=== PATIENT | female | born 1950 | race Caucasian/White ===

== ENCOUNTER 2017-06-16 13:46 | Outpatient (CLI) | payer MEDICARE, BC | END 2017-06-16 13:47 | disposition home or self-care (01) | LOC: BICMAMMO 13:46 | PROVIDERS: ATTEND Internal Medicine | DX: Z12.31 Encounter for screening mammogram for malignant neoplasm of breast (principal); Z78.0 Asymptomatic menopausal state; M85.89 Other specified disorders of bone density and structure, multiple sites; Z80.3 Family history of malignant neoplasm of breast | CPT/HCPCS: 77063; 77067; 77080 ==

== ENCOUNTER 2019-01-04 08:58 | Outpatient (CLI) | payer MEDICARE, BC ==
--- NOTE | 2019-01-04 09:51 | ULT ---
US Renal Bilateral STANDARD: 01/04/2019 12:00 AM CLINICAL HISTORY: Chronic kidney disease. STUDY: Renal ultrasound COMPARISON: None. FINDINGS: Right kidney: Echogenicity: Normal. Masses/cysts: 1.5 cm cyst Hydronephrosis: None. Calcifications: None. Length: 9.1 cm Left kidney: Echogenicity: Normal. Masses/cysts: 1.1 cm cyst Hydronephrosis: None. Calcifications: None. Length: 8.8 cm Limited visualization of the urinary bladder is unremarkable. Both ureteral jets were visualized. IMPRESSION: Bilateral renal cysts
== END 2019-01-04 08:59 | disposition home or self-care (01) ==
LOC: BICULT 08:58
PROVIDERS: ATTEND Internal Medicine
DX: E11.22 Type 2 diabetes mellitus with diabetic chronic kidney disease (principal); N18.4 Chronic kidney disease, stage 4 (severe); N28.1 Cyst of kidney, acquired
CPT/HCPCS: 76770

== ENCOUNTER 2020-04-14 15:25 | Outpatient (CLI) | payer MEDICARE, BC ==
--- NOTE | 2020-04-14 16:25 | CT ---
CT neck soft tissues noncontrast: 04/14/2020 HISTORY: 69-year-old female with palpable mass anterior to the right ear. TECHNIQUE: External marker was placed at palpable lump. No IV contrast was given because of low GFR of 28. Scan from mid orbits to aortic arch. FINDINGS: Deep to the external marker, there is an approximately 1.5 x 1.5 x 1.8 cm round, slightly lobular deborah id soft tissue density mass in the anterior portion of the superficial lobe of the right parotid gland, anterior to the right external ear, and lateral to the right mandibular condyle. It contains n o calcifications. There is no sialolith. At approximately T1-2 level, there is an approximately 1 x 1 x 0.5 cm soft tissue density nodule abut ting the right side of the trachea. Anterior and inferior to that, there are several smaller such densities abutting the right side of th e intrathoracic trachea Otherwise no other evidence of cervical lymphadenopathy. Unremarkable trachea. Within the limitations of a noncontrast scan, no obvious pathology identified involving submandibular , left parotid, parapharyngeal, pharyngeal mucosal, retropharyngeal, perivertebral, or cattle farmer, spaces. Groundglass densities throughout the visualized lung apices. 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 In general, it is not possible to reliably distinguish benign parotid tumors from low-grade malignant ones on any imaging modality. 2) a vertical array of small soft tissue density nodules abutting the right side of the trachea. Thes e are nonspecific. There are favored to represent several slightly enlarged lymph nodes. Parathyroid adenomas would be less likely, but correlation with serum PTH and serum calcium is recomm ended. 3) nonspecific groundglass changes in the visualized bilateral lung apices. Possibilities include pul monary interstitial edema versus viral pneumonia.
== END 2020-04-14 15:26 | disposition home or self-care (01) ==
LOC: BICCT 15:25
PROVIDERS: ATTEND Student in an Organized Health Care Education/Training Program
DX: R22.1 Localized swelling, mass and lump, neck (principal); R91.8 Other nonspecific abnormal finding of lung field; C07 Malignant neoplasm of parotid gland
CPT/HCPCS: 70490

== ENCOUNTER 2020-05-02 12:02 | Outpatient (CLI) | payer MEDICARE, BC ==
[2020-05-03 03:17] LABS: SARS-CoV-2 MS2 Positive; SARS-CoV-2 N Gene Negative; SARS-CoV-2 S Gene Negative; SARS-CoV-2 by NAA Not Detected (NotDetected); SARS-CoV-2 orf1ab Negative
== END 2020-05-02 12:03 | disposition home or self-care (01) ==
LOC: LABBT 12:02
PROVIDERS: ATTEND Student in an Organized Health Care Education/Training Program
DX: Z01.812 Encounter for preprocedural laboratory examination (principal); R22.1 Localized swelling, mass and lump, neck; Z20.828 Contact with and (suspected) exposure to other viral communicable diseases
CPT/HCPCS: 87635; U0003

== ENCOUNTER 2020-05-06 12:23 | Day surgery (SDC) | payer MEDICARE, BC ==
[2020-05-05 13:52] VITALS: BMI 24.0
[2020-05-06] MEDS ORDERED: Lidocaine 1% PF 5 ML VIAL ONE (12:47)
[2020-05-06] MEDS ORDERED: Sodium Bicarbonate 2.5 MEQ/5 ML VIAL ONE (12:47)
--- NOTE | 2020-05-06 13:17 | ULT ---
Ultrasound right parotid: 05/06/2020 HISTORY: Right lateral facial mass in 69-year-old female FINDINGS: There is a well-circumscribed 1.8 x 1.6 x 1.4 cm solid, slightly heterogeneously hypoechoic mass in t he superficial lobe of the right parotid gland. There is blood flow within this mass. In general, it is not possible to reliably distinguish benign from low-grade malignant parotid neopla sm on any imaging modality with high degree of confidence. 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
[2020-05-06 13:40] VITALS: BP 163/77; TEMP 98.2
--- NOTE | 2020-05-06 14:32 | ULT ---
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 Patient placed in left lateral decubitus position. Skin of right ch rampart prepared and draped in usual sterile fashion. 25-gauge needle used to apply buffered lidocaine superficially, then under ultrasound guidance, to the anterolateral edge of the solid right parotid m ass. Using a total of 4 separate 25-gauge needles mounted on 4 separate 5 mL syringes, aspiration with chronic needle advancements were made in the parotid tumor. All samples were given to Dr. Osmar tatum of pathology, who prepared preliminary touch preparation slides, which revealed epithelial cells. Patient tolerated procedure well. No complications. IMPRESSION: Technically successful fine-needle aspiration x4 of the solitary solid tumor in the superficial lobe of the right parotid gland.
== END 2020-05-06 14:00 | disposition home or self-care (01) ==
LOC: ULT 12:23
PROVIDERS: ATTEND Student in an Organized Health Care Education/Training Program
PROC: 0CBJ3ZX Excision of Minor Salivary Gland, Percutaneous Approach, Diagnostic (ICD-10-PCS; principal; 2020-05-06)
DX: D11.0 Benign neoplasm of parotid gland (principal); K11.1 Hypertrophy of salivary gland; E11.40 Type 2 diabetes mellitus with diabetic neuropathy, unspecified; I10 Essential (primary) hypertension; M79.0 Rheumatism, unspecified; M19.90 Unspecified osteoarthritis, unspecified site; Z86.73 Personal history of transient ischemic attack (TIA), and cerebral infarction without residual deficits; Z87.891 Personal history of nicotine dependence; Z79.84 Long term (current) use of oral hypoglycemic drugs; Z79.83 Long term (current) use of bisphosphonates; Z79.899 Other long term (current) drug therapy
CPT/HCPCS: 60100; 76536; 76942; 88172; 88173; 88177; 88305

== ENCOUNTER 2021-04-14 12:23 | Outpatient (CLI) | payer MEDICARE, BC | END 2021-04-14 12:24 | disposition home or self-care (01) | LOC: BICMAMMO 12:23 | PROVIDERS: ATTEND Internal Medicine | DX: Z12.31 Encounter for screening mammogram for malignant neoplasm of breast (principal); Z80.3 Family history of malignant neoplasm of breast | CPT/HCPCS: 77063; 77067 ==

== ENCOUNTER 2021-04-24 09:44 | Emergency (ER) | payer MEDICARE, BC ==
[2021-04-24 10:42] LABS: Bilirubin Negative (Negative); Blood, Urine Negative (Negative); Clarity Turbid (Clear); Glucose, Urine (Dipstick) Greater than 1000 mg/dL (Negative); Ketone, Urine Trace mg/dL (Negative); Leukocyte 250 Leu/uL (Negative); Nitrite Negative (Negative); Protein, Urine (Dipstick) 20 mg/dL (Neg-Trace); RBC/HPF 0-3 HPF (0-3); Specific Gravity, Urine 1.026 (1.002-1.036); Squamous Epithelial 0-3 HPF (0-3); Urobilinogen Normal mg/dL (Less than 2)
[2021-04-24 10:43] LABS: Bacteria/HPF 1+ HPF (None Seen)
[2021-04-24 10:58] LABS: #Basophils 0.1 thou/uL (0.0-0.2); #Eosinphils 0.4 thou/uL (0.0-0.7); #Lymphocytes 2.2 thou/uL (1.20-3.40); #Neutrophils 7.7 thou/uL (1.40-6.50); %Basophils 0.6 % (0.0-1.0); %Eosinophils 3.4 % (0.0-10.0); %Monocytes 8.7 % (0.0-10.0); %Neutrophils 68.3 % (42.0-75.0); Hemoglobin 13.8 g/dL (12.0-16.0); Mean Corpuscular HGB CONC 34.2 g/dL (32.0-36.0); Mean Corpuscular Hemoglobin 30.9 pg (27.0-31.0); Mean Corpuscular Volume 90.5 fL (78.0-98.0); Mean Platelet Volume 7.8 fL (7.4-10.4); Platelet Count 172 thou/uL (130-400); RBC Distribution Width 11.9 % (11.5-14.5); Red Blood Cell (RBC) Count 4.46 mill/uL (4.20-5.40); White Blood Cell (WBC) Count 11.3 thou/uL (4.8-10.8)
[2021-04-24 11:28] LABS: ALT (SGPT) 11 U/L (8-55); AST (SGOT) 22 U/L (5-34); Alkaline Phosphatase 81 U/L (40-110); Anion Gap 20 mmol/L (10-20); BUN (Urea Nitrogen) 31 mg/dL (9.8-20.1); Bilirubin, Total 0.5 mg/dL (0.2-1.2); Calc. Creatinine Clearance 0 mL/min (70-130); Calcium 9.9 mg/dL (7.8-10.44); Carbon Dioxide 17 mmol/L (23-31); Chloride 103 mmol/L (98-107); Globulin 3.7 g/dL (2.4-3.5); Glucose 155 mg/dL (80-115); Potassium 4.7 mmol/L (3.5-5.1); Protein, Total 7.7 g/dL (5.8-8.1); Sodium 135 mmol/L (136-145)
== END 2021-04-24 12:35 | disposition home or self-care (01) ==
LOC: ERS 09:44
DX: S09.90XA Unspecified injury of head, initial encounter (principal); N30.00 Acute cystitis without hematuria; E11.9 Type 2 diabetes mellitus without complications; I10 Essential (primary) hypertension; Z87.891 Personal history of nicotine dependence; Z86.73 Personal history of transient ischemic attack (TIA), and cerebral infarction without residual deficits; Z79.899 Other long term (current) drug therapy; Z79.84 Long term (current) use of oral hypoglycemic drugs; W18.30XA Fall on same level, unspecified, initial encounter
CPT/HCPCS: 36415; 51701; 70450; 72125; 80053; 81003; 81015; 84484; 85025; 93005

== ENCOUNTER 2021-05-29 20:02 | Inpatient (IN) | payer MEDICARE, BC ==
[2021-05-29] MEDS ORDERED: Adenosine 6 MG/2 ML VIAL ONE (20:14)
[2021-05-29] MEDS ORDERED: Magnesium 2 GM/50 ML BAG (IN WATER) ONE (20:15)
[2021-05-29] MEDS ORDERED: Ondansetron PF 4 MG/2 ML Vial ONE (20:17)
[2021-05-29] MEDS ORDERED: EPINEPHrine 1 MG/10 ML Abboject SYRINGE ONE (20:26)
[2021-05-29] MEDS ORDERED: cefTRIAXone\\ROCEPHIN 2 GM VIAL ONE (21:08)
[2021-05-29] MEDS ORDERED: Azithromycin 500 MG VIAL ONE (21:08)
[2021-05-29 21:28] LABS: #Lymphocytes 0.9 thou/uL (1.20-3.40); #Monocytes 1.4 thou/uL (0.11-0.59); #Neutrophils 11.5 thou/uL (1.40-6.50); %Eosinophils 0.1 % (0.0-10.0); %Lymphocytes 6.6 % (21.0-51.0); %Monocytes 10.2 % (0.0-10.0); Hemoglobin 11.7 g/dL (12.0-16.0); Mean Corpuscular HGB CONC 34.2 g/dL (32.0-36.0); Mean Corpuscular Volume 93.6 fL (78.0-98.0); Platelet Count 227 thou/uL (130-400); RBC Distribution Width 12.4 % (11.5-14.5); Red Blood Cell (RBC) Count 3.65 mill/uL (4.20-5.40); White Blood Cell (WBC) Count 13.9 thou/uL (4.8-10.8)
[2021-05-29 21:40] LABS: CKMB 1.1 ng/mL (0-6.6)
[2021-05-29 21:50] LABS: INR-International Normal Ratio 1.1; PTT 33.4 sec (22.9-36.1); Prothrombin Time 14.5 sec (12.0-14.7)
[2021-05-29 21:54] LABS: ALT (SGPT) 40 U/L (8-55); AST (SGOT) 69 U/L (5-34); Albumin 3.7 g/dL (3.4-4.8); Alkaline Phosphatase 122 U/L (40-110); Anion Gap 29 mmol/L (10-20); Bilirubin, Total 0.8 mg/dL (0.2-1.2); Calc. Creatinine Clearance 0 mL/min (70-130); Calcium 8.7 mg/dL (7.8-10.44); Carbon Dioxide 9 mmol/L (23-31); Chloride 104 mmol/L (98-107); Globulin 3.7 g/dL (2.4-3.5); Glucose 389 mg/dL (80-115); Lipase 12 U/L (8-78); Magnesium 1.9 mg/dL (1.6-2.6); Potassium 5.1 mmol/L (3.5-5.1); Protein, Total 7.4 g/dL (5.8-8.1); Sodium 137 mmol/L (136-145)
[2021-05-29] MEDS ORDERED: Enoxaparin Sodium 60 MG/0.6 ML SYRINGE ONE (22:49)
[2021-05-29] MEDS ORDERED: Ondansetron PF 4 MG/2 ML Vial IVP PRN (23:52)
[2021-05-29] MEDS ORDERED: Dextrose 5% in Water 1,000 ML IV PRN (23:57)
[2021-05-29] MEDS ORDERED: HumaLOG 300 UNITS/3 ML VIAL SC PRN (23:57)
[2021-05-29] MEDS ORDERED: Dextrose 50% Abboject 50 ML SYRINGE SLOW IVP PRN (23:57)
[2021-05-30 00:20] LABS: SARS-CoV-2 NAA Rapid Test Not Detected (NotDetected)
[2021-05-30 00:25] VITALS: BMI 23.3
[2021-05-30 00:37] LABS: Lactic Acid 1.2 mmol/L (0.5-2.2)
[2021-05-30 00:40] LABS: BUN (Urea Nitrogen) 20 mg/dL (9.8-20.1)
[2021-05-30] MEDS: Sodium Chloride 0.9% 1,000 ML IV SCH ×2 (00:54→15:00)
[2021-05-30] MEDS: Sodium Bicarb 50 MEQ/50 ML Abboject 8.4% SYRINGE IVP SCH (00:55)
[2021-05-30 01:09] LABS: Troponin I 1.481 ng/mL (< 0.028)
[2021-05-30 04:08] LABS: #Lymphocytes 1.8 thou/uL (1.20-3.40); #Monocytes 1.8 thou/uL (0.11-0.59); #Neutrophils 11.8 thou/uL (1.40-6.50); %Basophils 0.1 % (0.0-1.0); %Eosinophils 0.1 % (0.0-10.0); %Lymphocytes 11.7 % (21.0-51.0); %Monocytes 11.7 % (0.0-10.0); %Neutrophils 76.3 % (42.0-75.0); Hemoglobin 10.6 g/dL (12.0-16.0); Mean Corpuscular HGB CONC 33.8 g/dL (32.0-36.0); Mean Corpuscular Hemoglobin 31.2 pg (27.0-31.0); Mean Corpuscular Volume 92.1 fL (78.0-98.0); Platelet Count 222 thou/uL (130-400); RBC Distribution Width 12.2 % (11.5-14.5); Red Blood Cell (RBC) Count 3.41 mill/uL (4.20-5.40); White Blood Cell (WBC) Count 15.5 thou/uL (4.8-10.8)
[2021-05-30 04:32] LABS: ALT (SGPT) 116 U/L (8-55); AST (SGOT) 137 U/L (5-34); Albumin 3.1 g/dL (3.4-4.8); Alkaline Phosphatase 107 U/L (40-110); Anion Gap 13 mmol/L (10-20); BUN (Urea Nitrogen) 17 mg/dL (9.8-20.1); Bilirubin, Direct 0.2 mg/dL (0.1-0.3); Bilirubin, Total 0.3 mg/dL (0.2-1.2); Calc. Creatinine Clearance 43 mL/min (70-130); Calcium 8.5 mg/dL (7.8-10.44); Carbon Dioxide 24 mmol/L (23-31); Chloride 108 mmol/L (98-107); Glucose 227 mg/dL (80-115); Magnesium 2.3 mg/dL (1.6-2.6); Potassium 3.9 mmol/L (3.5-5.1); Protein, Total 6.3 g/dL (5.8-8.1); Sodium 141 mmol/L (136-145)
[2021-05-30 04:47] LABS: Troponin I 3.466 ng/mL (< 0.028)
[2021-05-30] MEDS: HumaLOG 300 UNITS/3 ML VIAL SC PRN (05:38)
[2021-05-30 06:09] LABS: Bacteria/HPF None Seen HPF (None Seen); Bilirubin Negative (Negative); Blood, Urine Negative (Negative); Clarity Clear (Clear); Glucose, Urine (Dipstick) Greater than 1000 mg/dL (Negative); Ketone, Urine 20 mg/dL (Negative); Leukocyte 25 Leu/uL (Negative); Nitrite Negative (Negative); Protein, Urine (Dipstick) 30 mg/dL (Neg-Trace); RBC/HPF 0-3 HPF (0-3); Specific Gravity, Urine 1.025 (1.002-1.036); Squamous Epithelial 0-3 HPF (0-3); Transitional Epithelial 0-3 HPF (None Seen); Urobilinogen Normal mg/dL (Less than 2); Yeast-Budding 3+ HPF (None Seen)
[2021-05-30 06:10] LABS: Urine Culture Reflex Yes Yes
[2021-05-30] MEDS: Acetaminophen 325 MG TAB PO PRN (08:39)
[2021-05-30] MEDS ORDERED: FLU VACC QS2021-22(6MOS UP)/PF 60 MCG/0.5 ML SYRINGE IM ONE (09:00)
[2021-05-30] MEDS ORDERED: Temazepam 15 MG CAP PO PRN (09:07)
[2021-05-30] MEDS: traMADol HCl 50 MG TAB PO SCH ×2 (10:16→20:49)
[2021-05-30] MEDS: diphenhydrAMINE 25 MG CAP PO SCH (10:16)
[2021-05-30 13:50] LABS: Legionella Urinary Ag Negative (Negative)
[2021-05-30 15:40] LABS: Strep pneumo Urine Ag POSITIVE (NEGATIVE)
[2021-05-30 17:48] LABS: Hemoglobin A1c 9.7 % (4.0-6.0)
[2021-05-30] MEDS: Alogliptin 6.25 MG TAB PO SCH (20:48)
[2021-05-30] MEDS: Atorvastatin Calcium 10 MG TAB PO SCH (20:49)
[2021-05-30] MEDS: cefTRIAXone\\ROCEPHIN 1 GM in Sodium Chloride 0.9% 100 ML IVPB SCH (20:50)
[2021-05-30] MEDS: Azithromycin 500 MG in Sodium Chloride 0.9% 250 ML 250 ML IVPB SCH (22:35)
[2021-05-31] MEDS: Sodium Bicarb 50 MEQ/50 ML Abboject 8.4% SYRINGE IVP SCH (00:16)
[2021-05-31] MEDS: Sodium Chloride 0.9% 1,000 ML IV SCH ×2 (03:53→16:53)
[2021-05-31 05:01] LABS: #Eosinphils 0.3 thou/uL (0.0-0.7); #Lymphocytes 1.9 thou/uL (1.20-3.40); #Neutrophils 8.6 thou/uL (1.40-6.50); %Basophils 0.4 % (0.0-1.0); %Eosinophils 2.6 % (0.0-10.0); %Lymphocytes 16.3 % (21.0-51.0); %Monocytes 8.3 % (0.0-10.0); %Neutrophils 72.4 % (42.0-75.0); Hemoglobin 10.9 g/dL (12.0-16.0); Mean Corpuscular HGB CONC 32.6 g/dL (32.0-36.0); Mean Corpuscular Hemoglobin 30.8 pg (27.0-31.0); Mean Corpuscular Volume 94.3 fL (78.0-98.0); Mean Platelet Volume 6.8 fL (7.4-10.4); Platelet Count 236 thou/uL (130-400); RBC Distribution Width 12.5 % (11.5-14.5); Red Blood Cell (RBC) Count 3.53 mill/uL (4.20-5.40); White Blood Cell (WBC) Count 11.9 thou/uL (4.8-10.8)
[2021-05-31 05:19] LABS: Anion Gap 11 mmol/L (10-20); BUN (Urea Nitrogen) 14 mg/dL (9.8-20.1); Calc. Creatinine Clearance 61 mL/min (70-130); Calcium 8.6 mg/dL (7.8-10.44); Carbon Dioxide 24 mmol/L (23-31); Chloride 106 mmol/L (98-107); Glucose 111 mg/dL (80-115); Magnesium 1.9 mg/dL (1.6-2.6); Potassium 3.7 mmol/L (3.5-5.1); Sodium 137 mmol/L (136-145)
[2021-05-31] MEDS: Enoxaparin Sodium 30 MG/0.3 ML SYRINGE SC SCH (08:27)
[2021-05-31] MEDS: traMADol HCl 50 MG TAB PO SCH ×2 (08:27→21:05)
[2021-05-31] MEDS: metFORMIN 500 MG TAB PO SCH (08:27)
[2021-05-31] MEDS: Empagliflozin 25 MG TAB PO SCH (08:30)
[2021-05-31] MEDS: diphenhydrAMINE 25 MG CAP PO SCH (08:32)
[2021-05-31] MEDS: HumaLOG 300 UNITS/3 ML VIAL SC PRN (16:53)
[2021-05-31] MEDS: Alogliptin 6.25 MG TAB PO SCH (21:04)
[2021-05-31] MEDS: Atorvastatin Calcium 10 MG TAB PO SCH (21:05)
[2021-05-31] MEDS: cefTRIAXone\\ROCEPHIN 1 GM in Sodium Chloride 0.9% 100 ML IVPB SCH (21:15)
[2021-05-31] MEDS: Azithromycin 500 MG in Sodium Chloride 0.9% 250 ML 250 ML IVPB SCH (22:11)
[2021-06-01 04:46] LABS: #Eosinphils 0.3 thou/uL (0.0-0.7); #Lymphocytes 2.5 thou/uL (1.20-3.40); #Monocytes 1.2 thou/uL (0.11-0.59); #Neutrophils 8.1 thou/uL (1.40-6.50); %Basophils 0.2 % (0.0-1.0); %Eosinophils 2.1 % (0.0-10.0); %Lymphocytes 20.7 % (21.0-51.0); %Monocytes 9.9 % (0.0-10.0); Hemoglobin 10.7 g/dL (12.0-16.0); Mean Corpuscular HGB CONC 33.1 g/dL (32.0-36.0); Mean Corpuscular Hemoglobin 31.3 pg (27.0-31.0); Mean Corpuscular Volume 94.4 fL (78.0-98.0); Mean Platelet Volume 6.6 fL (7.4-10.4); Platelet Count 265 thou/uL (130-400); RBC Distribution Width 12.3 % (11.5-14.5); Red Blood Cell (RBC) Count 3.41 mill/uL (4.20-5.40); White Blood Cell (WBC) Count 12.1 thou/uL (4.8-10.8)
[2021-06-01 05:07] LABS: Anion Gap 13 mmol/L (10-20); BUN (Urea Nitrogen) 11 mg/dL (9.8-20.1); Calc. Creatinine Clearance 61 mL/min (70-130); Calcium 9.5 mg/dL (7.8-10.44); Carbon Dioxide 23 mmol/L (23-31); Chloride 106 mmol/L (98-107); Glucose 79 mg/dL (80-115); Magnesium 1.6 mg/dL (1.6-2.6); Potassium 4.2 mmol/L (3.5-5.1); Sodium 138 mmol/L (136-145)
[2021-06-01] MEDS: Sodium Chloride 0.9% 1,000 ML IV SCH (05:35)
[2021-06-01] MEDS: metFORMIN 500 MG TAB PO SCH (09:01)
[2021-06-01] MEDS: traMADol HCl 50 MG TAB PO SCH ×2 (09:01→20:35)
[2021-06-01] MEDS: Enoxaparin Sodium 30 MG/0.3 ML SYRINGE SC SCH (09:02)
[2021-06-01] MEDS: diphenhydrAMINE 25 MG CAP PO SCH (09:02)
[2021-06-01] MEDS: Empagliflozin 25 MG TAB PO SCH (09:03)
[2021-06-01] MEDS ORDERED: hydrALAZINE 20 MG/ML VIAL SLOW IVP PRN (10:44)
[2021-06-01] MEDS: Acetaminophen 325 MG TAB PO PRN (13:39)
[2021-06-01] MEDS ORDERED: Amlodipine 5 MG TAB PO SCH (14:00)
[2021-06-01] MEDS ORDERED: Piperacillin/Tazobactam 3.375 GM in Sodium Chloride 0.9% 100 ML IVPB SCH ×2 (15:03→15:15)
[2021-06-01] MEDS ORDERED: Furosemide 20 MG/2 ML VIAL SLOW IVP SCH (15:15)
[2021-06-01] MEDS ORDERED: cloNIDine 0.1 MG TAB PO SCH (18:00)
[2021-06-01] MEDS: Atorvastatin Calcium 10 MG TAB PO SCH (20:35)
[2021-06-01] MEDS: Alogliptin 6.25 MG TAB PO SCH (20:35)
[2021-06-01] MEDS: cloNIDine 0.1 MG TAB PO SCH (20:36)
[2021-06-01] MEDS: Piperacillin/Tazobactam 3.375 GM in Sodium Chloride 0.9% 100 ML IVPB SCH (20:36)
[2021-06-01] MEDS: Azithromycin 500 MG in Sodium Chloride 0.9% 250 ML 250 ML IVPB SCH (22:54)
[2021-06-02] MEDS: Piperacillin/Tazobactam 3.375 GM in Sodium Chloride 0.9% 100 ML IVPB SCH (04:46)
[2021-06-02] MEDS: metFORMIN 500 MG TAB PO SCH (08:51)
[2021-06-02] MEDS: cloNIDine 0.1 MG TAB PO SCH (08:52)
[2021-06-02] MEDS: Empagliflozin 25 MG TAB PO SCH (08:52)
[2021-06-02] MEDS: diphenhydrAMINE 25 MG CAP PO SCH (08:53)
[2021-06-02] MEDS: Enoxaparin Sodium 30 MG/0.3 ML SYRINGE SC SCH (08:53)
[2021-06-02] MEDS ORDERED: Amlodipine 5 MG TAB PO SCH (09:00)
[2021-06-02 09:09] VITALS: TEMP 98.6
[2021-06-02] MEDS: traMADol HCl 50 MG TAB PO SCH (09:16)
[2021-06-02 10:15] LABS: #Eosinphils 0.1 thou/uL (0.0-0.7); #Lymphocytes 1.6 thou/uL (1.20-3.40); #Monocytes 1.2 thou/uL (0.11-0.59); #Neutrophils 9.8 thou/uL (1.40-6.50); %Basophils 0.2 % (0.0-1.0); %Eosinophils 1.1 % (0.0-10.0); %Lymphocytes 12.2 % (21.0-51.0); %Monocytes 9.3 % (0.0-10.0); %Neutrophils 77.2 % (42.0-75.0); Hemoglobin 11.5 g/dL (12.0-16.0); Mean Corpuscular HGB CONC 32.6 g/dL (32.0-36.0); Mean Corpuscular Hemoglobin 30.7 pg (27.0-31.0); Mean Corpuscular Volume 94.1 fL (78.0-98.0); Mean Platelet Volume 6.8 fL (7.4-10.4); Platelet Count 283 thou/uL (130-400); RBC Distribution Width 12.5 % (11.5-14.5); Red Blood Cell (RBC) Count 3.75 mill/uL (4.20-5.40); White Blood Cell (WBC) Count 12.7 thou/uL (4.8-10.8)
[2021-06-02] MEDS ORDERED: Aspirin 81 mg Enteric Coated Tablet PO SCH (11:30)
[2021-06-02 12:27] VITALS: BP 185/77
== END 2021-06-02 11:20 | disposition home or self-care (01) | DRG 871 ==
LOC: ERS 20:02 → IMCU/EMU 22:30 → 2NO 05-30 16:05
PROVIDERS: ADMIT Internal Medicine; ATTEND Internal Medicine
DX: A40.9 Streptococcal sepsis, unspecified (principal); Z20.822 Contact with and (suspected) exposure to COVID-19; J15.4 Pneumonia due to other streptococci; I21.A1 Myocardial infarction type 2; J96.01 Acute respiratory failure with hypoxia; R65.21 Severe sepsis with septic shock; I47.1 Supraventricular tachycardia; J90 Pleural effusion, not elsewhere classified; E87.2 Acidosis; N17.9 Acute kidney failure, unspecified; J44.0 Chronic obstructive pulmonary disease with (acute) lower respiratory infection; J44.1 Chronic obstructive pulmonary disease with (acute) exacerbation; I47.2 Ventricular tachycardia; I16.0 Hypertensive urgency; I08.1 Rheumatic disorders of both mitral and tricuspid valves; N18.30 Chronic kidney disease, stage 3 unspecified; E11.42 Type 2 diabetes mellitus with diabetic polyneuropathy; E11.22 Type 2 diabetes mellitus with diabetic chronic kidney disease; I12.9 Hypertensive chronic kidney disease with stage 1 through stage 4 chronic kidney disease, or unspecified chronic kidney disease; D63.1 Anemia in chronic kidney disease; E11.649 Type 2 diabetes mellitus with hypoglycemia without coma; Z86.73 Personal history of transient ischemic attack (TIA), and cerebral infarction without residual deficits; Z79.899 Other long term (current) drug therapy; Z79.84 Long term (current) use of oral hypoglycemic drugs; Z90.710 Acquired absence of both cervix and uterus; Z85.9 Personal history of malignant neoplasm, unspecified; Z87.891 Personal history of nicotine dependence
CPT/HCPCS: 36415; 36416; 71045; 80048; 80053; 80076; 81001; 82553; 83036; 83605; 83690; 83735; 83880; 84443; 84484; 85025; 85610; 85730; 86850; 86900; 86901; 87040; 87070; 87077; 87086; 87149; 87186; 87205; 87449; 87804; 87899; 92960; 93005; 93306; 96365; 96367; 96375; J0153; J0171; J0360; J0456; J0696; J1650; J1815; J1940; J2405; J2543; J3475; J3490; J7050; U0002

== ENCOUNTER 2021-07-02 12:13 | Outpatient (CLI) | payer MEDICARE, BC | END 2021-07-02 12:14 | disposition home or self-care (01) | LOC: BICRAD 12:13 | PROVIDERS: ATTEND Internal Medicine | DX: J18.9 Pneumonia, unspecified organism (principal) | CPT/HCPCS: 71046 ==

== ENCOUNTER 2022-04-21 15:44 | Inpatient (IN) | payer MEDICARE, BC ==
[2022-04-21] MEDS ORDERED: Ondansetron ODT 4 MG TAB PO PRN (17:01)
[2022-04-21] MEDS ORDERED: Acetaminophen 325 MG TAB PO PRN (17:01)
[2022-04-21] MEDS ORDERED: Calcium Carbonate 500 MG ChewTAB PO PRN (17:01)
[2022-04-21] MEDS ORDERED: Ondansetron PF 4 MG/2 ML Vial IVP PRN (17:01)
[2022-04-21] MEDS ORDERED: Insulin Regular 300 UNITS/3 ML VIAL SC PRN ×2 (17:04)
[2022-04-21] MEDS ORDERED: Dextrose 5% in Water 1,000 ML IV PRN (17:04)
[2022-04-21] MEDS ORDERED: Dextrose 50% Abboject 50 ML SYRINGE SLOW IVP PRN (17:04)
[2022-04-21] MEDS ORDERED: Nitroglycerin 0.4 MG TAB (25 Tab Bottle) SL PRN (17:06)
[2022-04-21] MEDS ORDERED: Diltiazem 125 MG in Sodium Chloride 0.9% 100 ML IVPB SCH (17:30)
[2022-04-21] MEDS ORDERED: Digoxin 0.25 MG TAB PO SCH ×2 (17:30→18:00)
[2022-04-21 17:39] VITALS: BMI 22.1
[2022-04-21] MEDS ORDERED: Ipratropium Bromide 2.5 ml Neb NEB PRN (17:43)
[2022-04-21] MEDS ORDERED: Communication Order-Pharmacy FS ONE (17:48)
[2022-04-21 17:55] LABS: Anion Gap 17 mmol/L (10-20); BUN (Urea Nitrogen) 32 mg/dL (9.8-20.1); Calc. Creatinine Clearance 31 mL/min (70-130); Calcium 9.1 mg/dL (7.8-10.44); Carbon Dioxide 17 mmol/L (23-31); Chloride 102 mmol/L (98-107); Estimated GFR 35; Glucose 244 mg/dL (80-115); Potassium 4.3 mmol/L (3.5-5.1); Sodium 132 mmol/L (136-145)
[2022-04-21] MEDS ORDERED: Diltiazem HCl 125 MG, Admixture Fee 1 EACH in Sodium Chloride 0.9% 100 ML IVPB SCH (18:00)
[2022-04-21] MEDS ORDERED: Electrolyte Replacement Protocol FS SCH (18:00)
[2022-04-21 18:09] LABS: Troponin I 0.938 ng/mL (< 0.028)
[2022-04-21] MEDS ORDERED: Famotidine 20 MG TAB PO SCH (21:00)
[2022-04-21] MEDS: Atorvastatin Calcium 10 MG TAB PO SCH (21:27)
[2022-04-21] MEDS: Alogliptin 6.25 MG TAB PO SCH (21:27)
[2022-04-21] MEDS: Enoxaparin Sodium 60 MG/0.6 ML SYRINGE SC SCH (21:27)
[2022-04-21] MEDS ORDERED: traMADol HCl 50 MG TAB PO SCH (21:45)
[2022-04-22 05:02] LABS: #Basophils 0.1 thou/uL (0.0-0.2); #Eosinphils 0.1 thou/uL (0.0-0.7); #Lymphocytes 2.7 thou/uL (1.20-3.40); #Monocytes 1.4 thou/uL (0.11-0.59); #Neutrophils 10.3 thou/uL (1.40-6.50); %Basophils 0.6 % (0.0-1.0); %Eosinophils 0.9 % (0.0-10.0); %Lymphocytes 18.6 % (21.0-51.0); %Monocytes 9.8 % (0.0-10.0); %Neutrophils 70.1 % (42.0-75.0); Hemoglobin 14.3 g/dL (12.0-16.0); Mean Corpuscular HGB CONC 33.5 g/dL (32.0-36.0); Mean Corpuscular Hemoglobin 30.6 pg (27.0-31.0); Mean Corpuscular Volume 91.3 fl (78.0-98.0); Mean Platelet Volume 7.6 fL (7.4-10.4); Platelet Count 215 10x3/uL (130-400); RBC Distribution Width 12.7 % (11.5-14.5); Red Blood Cell (RBC) Count 4.69 mill/uL (4.20-5.40); White Blood Cell (WBC) Count 14.7 10x3/uL (4.8-10.8)
[2022-04-22 05:43] LABS: ALT (SGPT) 11 U/L (8-55); AST (SGOT) 13 U/L (5-34); Albumin 3.9 g/dL (3.4-4.8); Alkaline Phosphatase 77 U/L (40-110); Anion Gap 19 mmol/L (10-20); BUN (Urea Nitrogen) 31 mg/dL (9.8-20.1); Bilirubin, Total 0.4 mg/dL (0.2-1.2); Calc. Creatinine Clearance 33 mL/min (70-130); Calcium 9.5 mg/dL (7.8-10.44); Carbon Dioxide 18 mmol/L (23-31); Chloride 105 mmol/L (98-107); Estimated GFR 38; Globulin 3.6 g/dL (2.4-3.5); Glucose 170 mg/dL (80-115); Potassium 4.5 mmol/L (3.5-5.1); Protein, Total 7.5 g/dL (5.8-8.1); Sodium 137 mmol/L (136-145)
[2022-04-22] MEDS: Furosemide 20 MG/2 ML VIAL SLOW IVP SCH ×2 (06:44→13:52)
[2022-04-22 07:34] LABS: Critical Call Chem Troponin I RESULT DECREASING
[2022-04-22 08:11] LABS: CKMB 2.1 ng/mL (0-6.6)
[2022-04-22 08:23] LABS: ALT (SGPT) 10 U/L (8-55); AST (SGOT) 13 U/L (5-34); Albumin 3.9 g/dL (3.4-4.8); Alkaline Phosphatase 78 U/L (40-110); Anion Gap 17 mmol/L (10-20); BUN (Urea Nitrogen) 30 mg/dL (9.8-20.1); Bilirubin, Total 0.6 mg/dL (0.2-1.2); Calc. Creatinine Clearance 34 mL/min (70-130); Calcium 9.5 mg/dL (7.8-10.44); Carbon Dioxide 22 mmol/L (23-31); Chloride 103 mmol/L (98-107); Estimated GFR 39; Globulin 3.4 g/dL (2.4-3.5); Glucose 158 mg/dL (80-115); Potassium 4.7 mmol/L (3.5-5.1); Protein, Total 7.3 g/dL (5.8-8.1); Sodium 137 mmol/L (136-145)
[2022-04-22] MEDS ORDERED: Aspirin 325 mg Enteric Coated Tablet PO SCH (09:00)
[2022-04-22] MEDS: Loratadine 10 MG TAB PO SCH (09:24)
[2022-04-22] MEDS: Enoxaparin Sodium 60 MG/0.6 ML SYRINGE SC SCH ×2 (09:24→20:11)
[2022-04-22] MEDS: Aspirin 81 mg Enteric Coated Tablet PO SCH (09:24)
[2022-04-22] MEDS: traMADol HCl 50 MG TAB PO SCH ×2 (09:25→20:11)
[2022-04-22] MEDS ORDERED: Digoxin 0.5 MG/2 ML AMP SLOW IVP SCH ×4 (09:30→16:00)
[2022-04-22] MEDS ORDERED: Sodium Chloride 0.9% 250 ML IV SCH (11:45)
[2022-04-22] MEDS ORDERED: Sodium Chloride 0.9% 250 ML 250 ML IVPB SCH ×2 (13:00→17:30)
[2022-04-22] MEDS: Sodium Chloride 0.9% 1,000 ML IV SCH (13:51)
[2022-04-22] MEDS ORDERED: Diltiazem HCl 125 MG, Admixture Fee 1 EACH in Sodium Chloride 0.9% 100 ML IVPB SCH (17:30)
[2022-04-22] MEDS ORDERED: Amiodarone 150 MG in Dextrose 5% in Water 100 ML IVPB SCH (18:00)
[2022-04-22] MEDS: Amiodarone 450 MG, Admixture Fee 1 EACH in Dextrose 5% in Water 250 ML IVPB SCH (20:03)
[2022-04-22] MEDS: Atorvastatin Calcium 10 MG TAB PO SCH (20:11)
[2022-04-22] MEDS: Alogliptin 6.25 MG TAB PO SCH (20:16)
[2022-04-23] MEDS: Sodium Chloride 0.9% 1,000 ML IV SCH ×3 (03:27→06:37)
[2022-04-23 05:30] LABS: #Basophils 0.1 thou/uL (0.0-0.2); #Eosinphils 0.2 thou/uL (0.0-0.7); #Lymphocytes 2.7 thou/uL (1.20-3.40); #Monocytes 1.2 thou/uL (0.11-0.59); #Neutrophils 6.1 thou/uL (1.40-6.50); %Lymphocytes 26.3 % (21.0-51.0); %Monocytes 11.3 % (0.0-10.0); %Neutrophils 59.4 % (42.0-75.0); Hemoglobin 14.2 g/dL (12.0-16.0); Mean Corpuscular HGB CONC 32.1 g/dL (32.0-36.0); Mean Corpuscular Hemoglobin 30.1 pg (27.0-31.0); Mean Corpuscular Volume 93.8 fl (78.0-98.0); Mean Platelet Volume 8.3 fL (7.4-10.4); Platelet Count 220 10x3/uL (130-400); RBC Distribution Width 12.7 % (11.5-14.5); Red Blood Cell (RBC) Count 4.73 mill/uL (4.20-5.40); White Blood Cell (WBC) Count 10.2 10x3/uL (4.8-10.8)
[2022-04-23] MEDS: Furosemide 20 MG/2 ML VIAL SLOW IVP SCH ×2 (05:30→13:22)
[2022-04-23] MEDS: Amiodarone 450 MG, Admixture Fee 1 EACH in Dextrose 5% in Water 250 ML IVPB SCH (05:33)
[2022-04-23 05:56] LABS: Anion Gap 17 mmol/L (10-20); BUN (Urea Nitrogen) 27 mg/dL (9.8-20.1); Calc. Creatinine Clearance 41 mL/min (70-130); Carbon Dioxide 16 mmol/L (23-31); Chloride 106 mmol/L (98-107); Estimated GFR 51; Glucose 158 mg/dL (80-115); Potassium 4.4 mmol/L (3.5-5.1); Sodium 135 mmol/L (136-145)
[2022-04-23] MEDS ORDERED: PROPOFOL 200 MG/20 ML VIAL ONE (08:32)
[2022-04-23] MEDS ORDERED: PHENYLEPHRINE-NS 100 MCG/ML 10 ML SYRINGE ONE (08:32)
[2022-04-23] MEDS ORDERED: Ondansetron HCl/PF 4 MG/2 ML Vial IVP PRN (10:15)
[2022-04-23] MEDS ORDERED: Promethazine HCl 25 MG/ML VIAL IM/IV PRN (10:15)
[2022-04-23] MEDS: Aspirin 81 mg Enteric Coated Tablet PO SCH (10:32)
[2022-04-23] MEDS: Enoxaparin Sodium 60 MG/0.6 ML SYRINGE SC SCH ×2 (10:33→21:06)
[2022-04-23] MEDS: Loratadine 10 MG TAB PO SCH (10:33)
[2022-04-23] MEDS: Insulin Glargine 30 UNITS/0.3 ML VIAL SC SCH (10:33)
[2022-04-23] MEDS: traMADol HCl 50 MG TAB PO SCH ×2 (10:34→21:07)
[2022-04-23] MEDS: Alogliptin 6.25 MG TAB PO SCH (21:06)
[2022-04-23] MEDS: Atorvastatin Calcium 10 MG TAB PO SCH (21:07)
[2022-04-23] MEDS: Amiodarone 200 MG TAB PO SCH (21:07)
[2022-04-24 05:08] LABS: Platelet Count 223 10x3/uL (130-400)
[2022-04-24] MEDS: Furosemide 20 MG/2 ML VIAL SLOW IVP SCH (05:49)
[2022-04-24 08:39] LABS: #Basophils 0.1 thou/uL (0.0-0.2); #Eosinphils 0.2 thou/uL (0.0-0.7); #Lymphocytes 2.2 thou/uL (1.20-3.40); #Monocytes 0.9 thou/uL (0.11-0.59); #Neutrophils 5.3 thou/uL (1.40-6.50); %Basophils 0.9 % (0.0-1.0); %Eosinophils 2.6 % (0.0-10.0); %Lymphocytes 25.7 % (21.0-51.0); %Monocytes 10.1 % (0.0-10.0); %Neutrophils 60.6 % (42.0-75.0); Hemoglobin 14.1 g/dL (12.0-16.0); Mean Corpuscular HGB CONC 33.7 g/dL (32.0-36.0); Mean Corpuscular Volume 91.9 fl (78.0-98.0); Platelet Count 219 10x3/uL (130-400); RBC Distribution Width 12.7 % (11.5-14.5); Red Blood Cell (RBC) Count 4.56 mill/uL (4.20-5.40); White Blood Cell (WBC) Count 8.7 10x3/uL (4.8-10.8)
[2022-04-24 08:44] LABS: Anion Gap 16 mmol/L (10-20); BUN (Urea Nitrogen) 30 mg/dL (9.8-20.1); Calc. Creatinine Clearance 34 mL/min (70-130); Calcium 9.2 mg/dL (7.8-10.44); Carbon Dioxide 20 mmol/L (23-31); Chloride 105 mmol/L (98-107); Estimated GFR 41; Glucose 107 mg/dL (80-115); Potassium 4.1 mmol/L (3.5-5.1); Sodium 137 mmol/L (136-145)
[2022-04-24] MEDS: Aspirin 81 mg Enteric Coated Tablet PO SCH (09:27)
[2022-04-24] MEDS: Amiodarone 200 MG TAB PO SCH (09:27)
[2022-04-24] MEDS: Enoxaparin Sodium 60 MG/0.6 ML SYRINGE SC SCH (09:27)
[2022-04-24] MEDS: traMADol HCl 50 MG TAB PO SCH (09:28)
[2022-04-24] MEDS: Loratadine 10 MG TAB PO SCH (09:28)
[2022-04-24] MEDS: Insulin Glargine 30 UNITS/0.3 ML VIAL SC SCH (09:28)
[2022-04-24 11:49] VITALS: TEMP 98.7
[2022-04-24 12:17] VITALS: BP 188/84
== END 2022-04-24 14:45 | disposition home or self-care (01) | DRG 308 ==
LOC: OBSVTOIN 17:06 → 2SW 17:06
PROVIDERS: ADMIT Family Medicine; ATTEND Family Medicine
PROC: 5A2204Z Restoration of Cardiac Rhythm, Single (ICD-10-PCS; principal; 2022-04-23)
PROC: B24BZZ4 Ultrasonography of Heart with Aorta, Transesophageal (ICD-10-PCS; 2022-04-23)
DX: I48.19 Other persistent atrial fibrillation (principal); I50.33 Acute on chronic diastolic (congestive) heart failure; J96.01 Acute respiratory failure with hypoxia; I24.8 Other forms of acute ischemic heart disease; I13.0 Hypertensive heart and chronic kidney disease with heart failure and stage 1 through stage 4 chronic kidney disease, or unspecified chronic kidney disease; N17.9 Acute kidney failure, unspecified; Z20.822 Contact with and (suspected) exposure to COVID-19; E11.42 Type 2 diabetes mellitus with diabetic polyneuropathy; E78.5 Hyperlipidemia, unspecified; E11.22 Type 2 diabetes mellitus with diabetic chronic kidney disease; J44.9 Chronic obstructive pulmonary disease, unspecified; I08.1 Rheumatic disorders of both mitral and tricuspid valves; N18.2 Chronic kidney disease, stage 2 (mild); I42.2 Other hypertrophic cardiomyopathy; I08.3 Combined rheumatic disorders of mitral, aortic and tricuspid valves; I47.20 Ventricular tachycardia, unspecified; Z80.9 Family history of malignant neoplasm, unspecified; Z79.899 Other long term (current) drug therapy; Z79.84 Long term (current) use of oral hypoglycemic drugs; Z79.82 Long term (current) use of aspirin; Z90.710 Acquired absence of both cervix and uterus; Z87.891 Personal history of nicotine dependence
CPT/HCPCS: 36415; 36416; 80048; 80053; 82553; 83735; 84443; 84484; 85014; 85018; 85025; 85049; 92960; 93005; 93010; 93306; 93312; 93798; J0282; J1160; J1650; J1815; J1940; J2405; J2704; J3490; J7030; J7050; J7070

== ENCOUNTER 2022-07-02 10:28 | Outpatient (CLI) | payer MEDICARE, BC ==
[2022-07-02 11:32] LABS: Hemoglobin 13.7 g/dL (12.0-15.5); Mean Corpuscular HGB CONC 33.6 g/dL (32.0-36.0); Mean Corpuscular Volume 92.3 fl (81.6-98.3); Mean Platelet Volume 9.9 fl (7.4-10.4); Platelet Count 271 10x3/uL (150-450); RBC Distribution Width 13.5 % (11.5-14.5); Red Blood Cell (RBC) Count 4.42 10x6/uL (3.90-5.03); White Blood Cell (WBC) Count 8.6 10x3/uL (3.5-10.5)
[2022-07-02 11:41] LABS: PTT 33.5 sec (22.0-33.0); Prothrombin Time 10.8 sec (9.5-12.1)
[2022-07-02 11:43] LABS: Anion Gap 16 mmol/L (10-20); BUN (Urea Nitrogen) 25 mg/dL (9.8-20.1); Calc. Creatinine Clearance 0 mL/min (70-130); Calcium 9.9 mg/dL (7.8-10.44); Carbon Dioxide 24 mmol/L (23-31); Chloride 102 mmol/L (98-107); Estimated GFR 30; Glucose 307 mg/dL (80-115); Potassium 5.3 mmol/L (3.5-5.1); Sodium 137 mmol/L (136-145)
== END 2022-07-02 10:29 | disposition home or self-care (01) ==
LOC: LABBT 10:28
PROVIDERS: ATTEND Internal Medicine Cardiovascular Disease
DX: Z01.818 Encounter for other preprocedural examination (principal)
CPT/HCPCS: 80048; 85027; 85610; 85730; 93005; 93010

== ENCOUNTER 2022-07-06 10:10 | Outpatient (CLI) | payer MEDICARE, BC | END 2022-07-06 10:11 | disposition home or self-care (01) | LOC: BICMAMMO 10:10 | PROVIDERS: ATTEND Internal Medicine | DX: Z12.31 Encounter for screening mammogram for malignant neoplasm of breast (principal); Z13.820 Encounter for screening for osteoporosis; M85.89 Other specified disorders of bone density and structure, multiple sites; Z80.3 Family history of malignant neoplasm of breast | CPT/HCPCS: 77063; 77067; 77080 ==

== ENCOUNTER 2022-07-07 07:50 | Emergency (ER) | payer MEDICARE, BC | END 2022-07-07 09:41 | disposition home or self-care (01) | LOC: ERS 07:50 | DX: S60.022A Contusion of left index finger without damage to nail, initial encounter (principal); S60.312A Abrasion of left thumb, initial encounter; E11.9 Type 2 diabetes mellitus without complications; E78.00 Pure hypercholesterolemia, unspecified; I10 Essential (primary) hypertension; W18.30XA Fall on same level, unspecified, initial encounter; Z87.891 Personal history of nicotine dependence; Z86.73 Personal history of transient ischemic attack (TIA), and cerebral infarction without residual deficits; Z79.899 Other long term (current) drug therapy; Z79.4 Long term (current) use of insulin | CPT/HCPCS: 70450 ==

== ENCOUNTER → 2022-07-07 | Day surgery (SDC) | payer OTHER, MEDICARE, BC ==
[2022-07-06 08:57] VITALS: BMI 22.3
[~2022-07-07] MED LIST: Heparin 10,000 UNITS/ 10 ML VIAL ONE; Heparin 25,000 units/D5W 0 ML ONE; Protamine Sulfate 50 MG/5 ML VIAL ONE
[2022-07-07 07:39] LABS: Anion Gap 15 mmol/L (10-20); BUN (Urea Nitrogen) 26 mg/dL (9.8-20.1); Calc. Creatinine Clearance 31 mL/min (70-130); Calcium 9.9 mg/dL (7.8-10.44); Carbon Dioxide 23 mmol/L (23-31); Chloride 102 mmol/L (98-107); Estimated GFR 34; Glucose 156 mg/dL (80-115); Potassium 4.4 mmol/L (3.5-5.1); Sodium 136 mmol/L (136-145)
== END | disposition home or self-care (01) ==
LOC: SDC 05:49
PROVIDERS: ATTEND Internal Medicine Cardiovascular Disease
DX: I48.0 Paroxysmal atrial fibrillation (principal); S00.83XA Contusion of other part of head, initial encounter; S60.00XA Contusion of unspecified finger without damage to nail, initial encounter; E11.9 Type 2 diabetes mellitus without complications; J44.9 Chronic obstructive pulmonary disease, unspecified; I42.1 Obstructive hypertrophic cardiomyopathy; E78.5 Hyperlipidemia, unspecified; I08.1 Rheumatic disorders of both mitral and tricuspid valves; Z53.8 Procedure and treatment not carried out for other reasons; Z86.73 Personal history of transient ischemic attack (TIA), and cerebral infarction without residual deficits; Z87.891 Personal history of nicotine dependence; Z79.01 Long term (current) use of anticoagulants; Z79.83 Long term (current) use of bisphosphonates; Z79.84 Long term (current) use of oral hypoglycemic drugs; Z79.85 Long-term (current) use of injectable non-insulin antidiabetic drugs; Z79.899 Other long term (current) drug therapy; W01.190A Fall on same level from slipping, tripping and stumbling with subsequent striking against furniture, initial encounter
CPT/HCPCS: 70450; 80048; 84132; J1644; J2720

== ENCOUNTER 2022-07-23 12:54 | Outpatient (CLI) | payer MEDICARE, BC ==
[2022-07-23 14:00] LABS: Hemoglobin 13.1 g/dL (12.0-15.5); Mean Corpuscular HGB CONC 33.5 g/dL (32.0-36.0); Mean Corpuscular Hemoglobin 30.3 pg (27.0-33.0); Mean Corpuscular Volume 90.3 fl (81.6-98.3); Mean Platelet Volume 9.4 fl (7.4-10.4); Platelet Count 245 10x3/uL (150-450); RBC Distribution Width 13.2 % (11.5-14.5); Red Blood Cell (RBC) Count 4.33 10x6/uL (3.90-5.03); White Blood Cell (WBC) Count 7.9 10x3/uL (3.5-10.5)
[2022-07-23 14:26] LABS: Anion Gap 17 mmol/L (10-20); BUN (Urea Nitrogen) 27 mg/dL (9.8-20.1); Calc. Creatinine Clearance 0 mL/min (70-130); Calcium 9.7 mg/dL (7.8-10.44); Carbon Dioxide 25 mmol/L (23-31); Chloride 103 mmol/L (98-107); Estimated GFR 34; Glucose 214 mg/dL (80-115); Potassium 5.5 mmol/L (3.5-5.1); Sodium 139 mmol/L (136-145)
== END 2022-07-23 12:55 | disposition home or self-care (01) ==
LOC: LABBT 12:54
PROVIDERS: ATTEND Internal Medicine Cardiovascular Disease
DX: Z01.812 Encounter for preprocedural laboratory examination (principal)
CPT/HCPCS: 80048; 85027

== ENCOUNTER → 2022-07-26 | Day surgery (SDC) | payer MEDICARE, BC ==
[2022-07-22 15:58] VITALS: BMI 22.3
[~2022-07-26] MED LIST changes: +Esmolol 100 MG/10 ML VIAL ONE; +Fentanyl 100 MCG/2 ML VIAL ONE; +Furosemide 40 MG TAB PO PRN; -Heparin 25,000 units/D5W 0 ML ONE; +Heparin 25,000 units/D5W 500 ML ONE; +Isoproterenol 0.2 MG/1 ML AMP ONE; +Lidocaine 1% PF 5 ML VIAL ONE; +Midazolam HCl 2 mg/2 ml Vial ONE; +Ondansetron PF 4 MG/2 ML Vial ONE; +PHENYLEPHRINE-NS 100 MCG/ML 10 ML SYRINGE ONE; +PROPOFOL 200 MG/20 ML VIAL ONE; +Potassium Chloride 20 MEQ TAB PO PRN; +Promethazine HCl 25 MG/ML VIAL ONE; +SUGAMMADEX SODIUM 200 MG/2 ML VIAL ONE; +Sucralfate 1 GM TAB PO SCH
[2022-07-26 07:23] LABS: Anion Gap 13 mmol/L (10-20); BUN (Urea Nitrogen) 22 mg/dL (9.8-20.1); Calc. Creatinine Clearance 34 mL/min (70-130); Calcium 9.2 mg/dL (7.8-10.44); Carbon Dioxide 25 mmol/L (23-31); Chloride 104 mmol/L (98-107); Estimated GFR 40; Glucose 169 mg/dL (80-115); Potassium 4.3 mmol/L (3.5-5.1); Sodium 138 mmol/L (136-145)
== END | disposition home or self-care (01) ==
LOC: SDC 05:49
PROVIDERS: ATTEND Internal Medicine Cardiovascular Disease
PROC: B244ZZ3 Ultrasonography of Right Heart, Intravascular (ICD-10-PCS; principal; 2022-07-26)
PROC: 02583ZZ Destruction of Conduction Mechanism, Percutaneous Approach (ICD-10-PCS; 2022-07-26)
PROC: 02K83ZZ Map Conduction Mechanism, Percutaneous Approach (ICD-10-PCS; 2022-07-26)
PROC: 4A023FZ Measurement of Cardiac Rhythm, Percutaneous Approach (ICD-10-PCS; 2022-07-26)
PROC: 4A0234Z Measurement of Cardiac Electrical Activity, Percutaneous Approach (ICD-10-PCS; 2022-07-26)
DX: I48.0 Paroxysmal atrial fibrillation (principal); I48.92 Unspecified atrial flutter; I42.1 Obstructive hypertrophic cardiomyopathy; I47.20 Ventricular tachycardia, unspecified; E11.9 Type 2 diabetes mellitus without complications; E78.5 Hyperlipidemia, unspecified; I11.9 Hypertensive heart disease without heart failure; I08.1 Rheumatic disorders of both mitral and tricuspid valves; Z86.73 Personal history of transient ischemic attack (TIA), and cerebral infarction without residual deficits; Z87.891 Personal history of nicotine dependence; Z79.01 Long term (current) use of anticoagulants; Z79.83 Long term (current) use of bisphosphonates; Z79.84 Long term (current) use of oral hypoglycemic drugs; Z79.85 Long-term (current) use of injectable non-insulin antidiabetic drugs; Z79.899 Other long term (current) drug therapy
CPT/HCPCS: 36415; 80048; 85347; 93005; 93622; 93623; 93656; C1732; C1759; C1760; C1894; J1644; J2250; J2405; J2550; J2704; J2720; J3010

== ENCOUNTER 2022-08-19 11:45 | Outpatient (CLI) | payer MEDICARE, BC | END 2022-08-19 11:46 | disposition home or self-care (01) | LOC: BICRAD 11:45 | PROVIDERS: ATTEND Internal Medicine | DX: M79.671 Pain in right foot (principal); M19.071 Primary osteoarthritis, right ankle and foot; M65.271 Calcific tendinitis, right ankle and foot; M89.371 Hypertrophy of bone, right ankle and foot ==

== ENCOUNTER 2023-08-30 17:36 | Inpatient (IN) | payer BC, MEDICARE ==
[~2023-08-30 17:36] MED LIST changes: -Esmolol 100 MG/10 ML VIAL ONE; -Fentanyl 100 MCG/2 ML VIAL ONE; -Furosemide 40 MG TAB PO PRN; -Heparin 10,000 UNITS/ 10 ML VIAL ONE; -Heparin 25,000 units/D5W 500 ML ONE; +Iopamidol-370 76% 500 ML MDV (1 ML CHARGE) ONE; -Isoproterenol 0.2 MG/1 ML AMP ONE; -Lidocaine 1% PF 5 ML VIAL ONE; -Midazolam HCl 2 mg/2 ml Vial ONE; -Ondansetron PF 4 MG/2 ML Vial ONE; -PHENYLEPHRINE-NS 100 MCG/ML 10 ML SYRINGE ONE; -PROPOFOL 200 MG/20 ML VIAL ONE; -Potassium Chloride 20 MEQ TAB PO PRN; -Promethazine HCl 25 MG/ML VIAL ONE; -Protamine Sulfate 50 MG/5 ML VIAL ONE; -SUGAMMADEX SODIUM 200 MG/2 ML VIAL ONE; -Sucralfate 1 GM TAB PO SCH
[2023-08-30] MEDS ORDERED: Ondansetron PF 4 MG/2 ML Vial ONE (18:23)
[2023-08-30 19:11] LABS: Troponin I 0.031 ng/mL (< 0.028)
[2023-08-30 19:38] LABS: #Basophils 0.1 thou/uL (0.0-0.2); #Monocytes 0.3 thou/uL (0.11-0.59); #Neutrophils 11.4 thou/uL (1.40-6.50); %Basophils 0.5 % (0.0-1.0); %Eosinophils 0.1 % (0.0-10.0); %Lymphocytes 9.1 % (21.0-51.0); %Monocytes 2.5 % (0.0-10.0); %Neutrophils 87.4 % (42.0-75.0); Hemoglobin 13.3 g/dL (12.0-16.0); Mean Corpuscular HGB CONC 34.1 g/dL (32.0-36.0); Mean Corpuscular Hemoglobin 29.4 pg (27.0-31.0); Mean Corpuscular Volume 86.3 fl (78.0-98.0); Mean Platelet Volume 10.1 fL (7.4-10.4); Platelet Count 268 10x3/uL (130-400); RBC Distribution Width 13.1 % (11.5-14.5); Red Blood Cell (RBC) Count 4.52 mill/uL (4.20-5.40)
[2023-08-30 21:49] LABS: ALT (SGPT) 10 U/L (8-55); AST (SGOT) 14 U/L (5-34); Albumin 4.7 g/dL (3.4-4.8); Alkaline Phosphatase 112 U/L (40-110); Anion Gap 21 mmol/L (10-20); BUN (Urea Nitrogen) 24 mg/dL (9.8-20.1); Bilirubin, Total 0.5 mg/dL (0.2-1.2); Calc. Creatinine Clearance 0 mL/min (70-130); Calcium 10.3 mg/dL (7.8-10.44); Carbon Dioxide 19 mmol/L (23-31); Chloride 100 mmol/L (98-107); Estimated GFR 44; Globulin 4.2 g/dL (2.4-3.5); Glucose 325 mg/dL (83-110); Lipase 5 U/L (8-78); Magnesium 1.9 mg/dL (1.6-2.6); Potassium 4.5 mmol/L (3.5-5.1); Protein, Total 8.9 g/dL (5.8-8.1); Sodium 135 mmol/L (136-145)
[2023-08-30 21:52] LABS: Troponin I 0.039 ng/mL (< 0.028)
[2023-08-30] MEDS ORDERED: Metoclopramide HCl 10 MG (2 mL) VIAL ONE (22:24)
[2023-08-30] MEDS ORDERED: diphenhydrAMINE 50 MG/ML VIAL ONE (22:24)
[2023-08-30] MEDS ORDERED: Aspirin Chewable 81 MG TAB ONE (22:37)
[2023-08-30] MEDS ORDERED: Acetaminophen 325 MG TAB PO PRN (22:45)
[2023-08-30] MEDS ORDERED: Ondansetron PF 4 MG/2 ML Vial IVP PRN (22:45)
[2023-08-30] MEDS ORDERED: Ondansetron ODT 4 MG TAB SL PRN (22:45)
[2023-08-31] MEDS ORDERED: Glucagon 1 MG/ML KIT IM PRN (00:36)
[2023-08-31] MEDS ORDERED: Dextrose 5% in Water 1,000 ML IV PRN (00:36)
[2023-08-31] MEDS ORDERED: Dextrose 50% Abboject 50 ML SYRINGE SLOW IVP PRN (00:36)
[2023-08-31 01:56] LABS: Hemoglobin A1c 9.4 % (4.0-6.0)
[2023-08-31] MEDS: Lactated Ringer's 1,000 ML IV SCH (02:01)
[2023-08-31] MEDS: Temazepam 15 MG CAP PO PRN (03:06)
[2023-08-31 06:29] LABS: Troponin I 0.059 ng/mL (< 0.028)
[2023-08-31] MEDS ORDERED: Ondansetron PF 4 MG/2 ML Vial ONE (06:51)
[2023-08-31] MEDS: Ondansetron PF 4 MG/2 ML Vial IVP PRN (06:53)
[2023-08-31 08:27] LABS: #Basophils 0.1 thou/uL (0.0-0.2); #Monocytes 0.9 thou/uL (0.11-0.59); #Neutrophils 12.5 thou/uL (1.40-6.50); %Basophils 0.4 % (0.0-1.0); %Lymphocytes 9.7 % (21.0-51.0); %Monocytes 5.9 % (0.0-10.0); %Neutrophils 83.5 % (42.0-75.0); Hematocrit 43.3 % (36.0-47.0); Hemoglobin 14.5 g/dL (12.0-16.0); Mean Corpuscular HGB CONC 33.5 g/dL (32.0-36.0); Mean Corpuscular Hemoglobin 29.4 pg (27.0-31.0); Mean Corpuscular Volume 87.7 fl (78.0-98.0); Mean Platelet Volume 10.6 fL (7.4-10.4); Platelet Count 297 10x3/uL (130-400); RBC Distribution Width 13.2 % (11.5-14.5); Red Blood Cell (RBC) Count 4.94 mill/uL (4.20-5.40)
[2023-08-31] MEDS ORDERED: Acetaminophen 325 MG TAB ONE (09:43)
[2023-08-31] MEDS ORDERED: Amlodipine 5 MG TAB ONE (09:43)
[2023-08-31] MEDS ORDERED: Apixaban 5 MG TAB ONE (09:44)
[2023-08-31] MEDS ORDERED: HumaLOG 300 UNITS/3 ML VIAL ONE (09:44)
[2023-08-31] MEDS: Amlodipine 5 MG TAB PO SCH (11:11)
[2023-08-31] MEDS: Apixaban 5 MG TAB PO SCH (11:11)
[2023-08-31] MEDS: HumaLOG 300 UNITS/3 ML VIAL SC PRN ×2 (11:12→21:57)
[2023-08-31] MEDS: Acetaminophen 325 MG TAB PO PRN (11:12)
[2023-08-31] MEDS ORDERED: Ondansetron ODT 4 MG TAB ONE (11:15)
[2023-08-31] MEDS: Ondansetron ODT 4 MG TAB PO PRN (11:16)
[2023-08-31] MEDS ORDERED: hydrALAZINE 20 MG/ML VIAL SLOW IVP PRN (11:47)
[2023-08-31 12:45] VITALS: BMI 20.9
[2023-08-31] MEDS: Sucralfate 1 GM TAB PO SCH (12:59)
[2023-08-31] MEDS: Amiodarone 200 MG TAB PO SCH (13:00)
[2023-08-31] MEDS: Promethazine HCl 12.5 MG in Sodium Chloride 0.9% 50 ML IVPB SCH (13:30)
[2023-08-31 15:22] LABS: Chloride 103 mmol/L (98-107)
[2023-08-31 15:23] LABS: Calcium 10.5 mg/dL (7.8-10.44); Glucose 314 mg/dL (83-110); Sodium 138 mmol/L (136-145)
[2023-08-31 15:25] LABS: Anion Gap 27 mmol/L (10-20); Carbon Dioxide 12 mmol/L (23-31)
[2023-08-31 15:27] LABS: Calc. Creatinine Clearance 30 mL/min (70-130); Estimated GFR 36
[2023-08-31 15:28] LABS: BUN (Urea Nitrogen) 29 mg/dL (9.8-20.1)
[2023-08-31] MEDS: traMADol HCl 50 MG TAB PO SCH (16:06)
[2023-08-31] MEDS: cloNIDine 0.1 MG TAB PO SCH (16:06)
[2023-08-31 17:10] LABS: Bacteria/HPF 1+ HPF (None Seen); Bilirubin Negative (Negative); Blood, Urine 2+ (Negative); CAUTI Indications for Culture Alt mental st,lethar; Clarity Clear (Clear); Glucose, Urine (Dipstick) Greater than 1000 mg/dL (Negative); Ketone, Urine 40 mg/dL (Negative); Leukocyte Negative Leu/uL (Negative); Nitrite Negative (Negative); Protein, Urine (Dipstick) 300 mg/dL (Neg-Trace); Specific Gravity, Urine 1.031 (1.002-1.036); Squamous Epithelial 0-3 HPF (0-3); Urobilinogen Normal mg/dL (Less than 2); WBC/HPF 0-3 HPF (0-3)
[2023-08-31 17:11] LABS: Urine Culture Reflex No No
[2023-08-31] MEDS: CO Q-10 CAPSULE 100 MG PO SCH (20:26)
[2023-08-31] MEDS: Atorvastatin Calcium 10 MG TAB PO SCH (20:27)
[2023-09-01] MEDS: Amiodarone 200 MG TAB PO SCH (09:34)
[2023-09-01] MEDS: Empagliflozin 10 MG TAB PO SCH (09:34)
[2023-09-01] MEDS: cloNIDine 0.1 MG TAB PO SCH (09:34)
[2023-09-01] MEDS: Loratadine 10 MG TAB PO SCH (09:36)
[2023-09-01] MEDS: Apixaban 2.5 MG TAB PO SCH (20:42)
[2023-09-02] MEDS: Insulin Glargine 30 UNITS/0.3 ML VIAL SC SCH (09:40)
[2023-09-02 10:03] LABS: #Basophils 0.1 thou/uL (0.0-0.2); #Eosinphils 0.1 thou/uL (0.0-0.7); #Monocytes 1.4 thou/uL (0.11-0.59); #Neutrophils 8.8 thou/uL (1.40-6.50); %Basophils 0.6 % (0.0-1.0); %Eosinophils 0.8 % (0.0-10.0); %Lymphocytes 18.2 % (21.0-51.0); Hematocrit 47.2 % (36.0-47.0); Hemoglobin 14.8 g/dL (12.0-16.0); Mean Corpuscular HGB CONC 31.4 g/dL (32.0-36.0); Mean Corpuscular Hemoglobin 29.5 pg (27.0-31.0); Mean Platelet Volume 9.8 fL (7.4-10.4); Platelet Count 237 10x3/uL (130-400); RBC Distribution Width 13.2 % (11.5-14.5); Red Blood Cell (RBC) Count 5.02 mill/uL (4.20-5.40)
[2023-09-02 10:19] LABS: Anion Gap 19 mmol/L (10-20); BUN (Urea Nitrogen) 55 mg/dL (9.8-20.1); Calc. Creatinine Clearance 24 mL/min (70-130); Calcium 9.6 mg/dL (7.8-10.44); Carbon Dioxide 17 mmol/L (23-31); Chloride 100 mmol/L (98-107); Estimated GFR 28; Glucose 245 mg/dL (83-110); Potassium 4.6 mmol/L (3.5-5.1); Sodium 131 mmol/L (136-145)
[2023-09-02 12:40] VITALS: BP 172/82; TEMP 97.7
== END 2023-09-02 13:47 | disposition home or self-care (01) | DRG 392 ==
LOC: ERS 17:36 → ERHOLD 22:39 → 2SW 08-31 12:34 → OBSVTOIN 08-31 15:47
PROVIDERS: ADMIT Student in an Organized Health Care Education/Training Program; ATTEND Internal Medicine
DX: K44.9 Diaphragmatic hernia without obstruction or gangrene (principal); I13.0 Hypertensive heart and chronic kidney disease with heart failure and stage 1 through stage 4 chronic kidney disease, or unspecified chronic kidney disease; I42.1 Obstructive hypertrophic cardiomyopathy; I24.89 Other forms of acute ischemic heart disease; I50.32 Chronic diastolic (congestive) heart failure; I48.91 Unspecified atrial fibrillation; N18.9 Chronic kidney disease, unspecified; E11.22 Type 2 diabetes mellitus with diabetic chronic kidney disease; Z79.899 Other long term (current) drug therapy; Z79.01 Long term (current) use of anticoagulants; E78.00 Pure hypercholesterolemia, unspecified; Z90.710 Acquired absence of both cervix and uterus; Z87.891 Personal history of nicotine dependence; Z79.4 Long term (current) use of insulin
CPT/HCPCS: 36415; 36416; 74177; 80048; 80053; 81001; 83036; 83690; 83735; 84145; 84484; 85025; 93005; 93306; J1200; J1815; J2405; J2550; J2765; J7120; Q0162; Q9967

== ENCOUNTER 2025-01-07 06:42 | Inpatient (IN) | payer MEDICARE ==
[2025-01-07 07:52] LABS: #Basophils 0.07 10x3/uL (0.0-0.2); #Eosinophils 0.18 10x3/uL (0.0-0.7); #Monocytes 0.97 10x3/uL (0.11-0.59); #Neutrophils 6.94 10x3/uL (1.40-6.50); %Basophils 0.7 % (0.0-1.0); %Eosinophils 1.9 % (0.0-10.0); %Lymphocytes 13.9 % (21.0-51.0); %Monocytes 10.2 % (0.0-10.0); %Neutrophils 73.0 % (42.0-75.0); Hematocrit 41.7 % (36.0-47.0); Hemoglobin 14.1 g/dL (12.0-16.0); Mean Corpuscular Hemoglobin 29.9 pg (27.0-31.0); Mean Corpuscular Volume 88.3 fL (78.0-98.0); Platelet Count 369 10x3/uL (130-400); Red Blood Cell (RBC) Count 4.72 mill/uL (4.20-5.40); White Blood Cell (WBC) Count 9.51 10x3/uL (4.8-10.8)
[2025-01-07 08:05] LABS: CAUTI Indications for Culture Dysuria,urgency,freq; Glucose, Urine (Dipstick) Greater than 1000 mg/dL (Negative); Leukocyte Negative Leu/uL (Negative); Protein, Urine (Dipstick) 100 mg/dL (Neg-Trace); RBC/HPF 0-3 HPF (0-3); Specific Gravity, Urine 1.016 (1.002-1.036); WBC/HPF 0-3 HPF (0-3)
[2025-01-07 08:14] LABS: Troponin I 0.050 ng/mL (< 0.028)
[2025-01-07 08:19] LABS: Bacteria/HPF Rare-Few HPF (None Seen)
[2025-01-07 08:20] LABS: Urine Culture Reflex No No
[2025-01-07] MEDS ORDERED: Nitroglycerin 50 MG/250 ML BOT 250 ML ONE (08:28)
[2025-01-07 08:30] LABS: ALT (SGPT) 25 U/L (Less than 34); AST (SGOT) 28 U/L (11-34); Albumin 3.5 g/dL (3.1-4.5); Alkaline Phosphatase 140 U/L (40-110); Anion Gap 17 mmol/L (10-20); BUN (Urea Nitrogen) 23 mg/dL (9.8-20.1); Bilirubin, Total 0.4 mg/dL (0.3-1.2); Calc. Creatinine Clearance 0 mL/min (70-130); Calcium 9.7 mg/dL (7.8-10.44); Carbon Dioxide 22 mmol/L (23-31); Chloride 104 mmol/L (98-107); Globulin 4.7 g/dL (2.4-3.5); Glucose 201 mg/dL (83-110); Potassium 4.3 mmol/L (3.5-5.1); Sodium 139 mmol/L (136-145)
[2025-01-07] MEDS ORDERED: Senokot S 8.6-50 MG TAB PO PRN (09:57)
[2025-01-07] MEDS ORDERED: Guaifenesin DM 100-10/5 ML UDCUP PO PRN (09:57)
[2025-01-07] MEDS ORDERED: Ondansetron PF 4 MG/2 ML Vial IVP PRN (09:57)
[2025-01-07] MEDS ORDERED: Electrolyte Replacement Protocol 1 EACH FS SCH (10:00)
[2025-01-07 12:36] LABS: Troponin I 0.057 ng/mL (< 0.028)
[2025-01-07] MEDS: Furosemide 20 MG (2 mL) VIAL SLOW IVP SCH (15:10)
[2025-01-07] MEDS ORDERED: Dextrose 50% Abboject 50 ML SYRINGE SLOW IVP PRN (15:14)
[2025-01-07] MEDS ORDERED: Glucagon 1 MG/ML KIT IM PRN (15:14)
[2025-01-07] MEDS ORDERED: Nitroglycerin 50 MG/250 ML BOT 250 ML IVPB SCH (15:30)
[2025-01-07 15:51] VITALS: BMI 21.5
[2025-01-07] MEDS ORDERED: SODIUM NITROPRUSSIDE IVPB SCH (16:00)
[2025-01-07] MEDS ORDERED: DEXTROSE 5% IVPB SCH (16:00)
[2025-01-07] MEDS ORDERED: WATER IVPB SCH (16:00)
[2025-01-07 16:29] LABS: Troponin I 0.052 ng/mL (< 0.028)
[2025-01-07] MEDS: Apixaban 5 MG TAB PO SCH (20:08)
[2025-01-07] MEDS: Acetaminophen 325 MG TAB PO PRN (20:16)
[2025-01-08 06:02] LABS: ALT (SGPT) 16 U/L (Less than 34); AST (SGOT) 18 U/L (11-34); Albumin 2.7 g/dL (3.1-4.5); Alkaline Phosphatase 97 U/L (40-110); Anion Gap 14 mmol/L (10-20); BUN (Urea Nitrogen) 22 mg/dL (9.8-20.1); Bilirubin, Total 0.3 mg/dL (0.3-1.2); Calc. Creatinine Clearance 40 mL/min (70-130); Calcium 8.6 mg/dL (7.8-10.44); Carbon Dioxide 26 mmol/L (23-31); Chloride 105 mmol/L (98-107); Globulin 3.4 g/dL (2.4-3.5); Glucose 125 mg/dL (83-110); Iron 24 ug/dL (50-170); Iron Binding Capacity, Total 229 mcg/dL (265-497); Magnesium 2.0 mg/dL (1.6-2.6); Potassium 3.6 mmol/L (3.5-5.1); Sodium 141 mmol/L (136-145)
[2025-01-08 06:08] LABS: #Basophils 0.06 10x3/uL (0.0-0.2); #Eosinophils 0.18 10x3/uL (0.0-0.7); #Monocytes 0.85 10x3/uL (0.11-0.59); #Neutrophils 5.59 10x3/uL (1.40-6.50); %Basophils 0.8 % (0.0-1.0); %Eosinophils 2.3 % (0.0-10.0); %Lymphocytes 15.9 % (21.0-51.0); %Monocytes 10.7 % (0.0-10.0); %Neutrophils 70.0 % (42.0-75.0); Hematocrit 33.3 % (36.0-47.0); Hemoglobin 10.8 g/dL (12.0-16.0); Mean Corpuscular Hemoglobin 29.5 pg (27.0-31.0); Mean Corpuscular Volume 91.0 fL (78.0-98.0); Platelet Count 257 10x3/uL (130-400); Red Blood Cell (RBC) Count 3.66 mill/uL (4.20-5.40); White Blood Cell (WBC) Count 7.97 10x3/uL (4.8-10.8)
[2025-01-08] MEDS: Lisinopril 20 MG TAB PO SCH (08:02)
[2025-01-08] MEDS: Metoprolol Succinate XL 50 MG ER.TAB PO SCH (08:02)
[2025-01-08] MEDS: Amiodarone 200 MG TAB PO SCH (08:03)
[2025-01-08] MEDS ORDERED: Amiodarone 200 MG TAB PO SCH (09:00)
[2025-01-08] MEDS: cefTRIAXone\\ROCEPHIN 2 GM in Sodium Chloride 0.9% 100 ML IVPB SCH (10:04)
[2025-01-08] MEDS: Magnesium 2 GM/50 ML(in water) 2 GM in Premix 1 BAG IVPB SCH (11:25)
[2025-01-08] MEDS: hydrALAZINE 20 MG/ML VIAL SLOW IVP PRN (23:21)
[2025-01-09 05:51] LABS: Anion Gap 17 mmol/L (10-20); BUN (Urea Nitrogen) 27 mg/dL (9.8-20.1); Calc. Creatinine Clearance 36 mL/min (70-130); Calcium 8.7 mg/dL (7.8-10.44); Carbon Dioxide 23 mmol/L (23-31); Chloride 101 mmol/L (98-107); Glucose 144 mg/dL (83-110); Potassium 3.3 mmol/L (3.5-5.1); Sodium 138 mmol/L (136-145)
[2025-01-09 07:04] LABS: #Basophils 0.06 10x3/uL (0.0-0.2); #Eosinophils 0.24 10x3/uL (0.0-0.7); #Monocytes 1.10 10x3/uL (0.11-0.59); #Neutrophils 7.80 10x3/uL (1.40-6.50); %Basophils 0.6 % (0.0-1.0); %Eosinophils 2.2 % (0.0-10.0); %Lymphocytes 13.4 % (21.0-51.0); %Monocytes 10.3 % (0.0-10.0); %Neutrophils 73.1 % (42.0-75.0); Hematocrit 35.4 % (36.0-47.0); Hemoglobin 11.5 g/dL (12.0-16.0); Mean Corpuscular Hemoglobin 28.8 pg (27.0-31.0); Mean Corpuscular Volume 88.5 fL (78.0-98.0); Platelet Count 330 10x3/uL (130-400); Red Blood Cell (RBC) Count 4.00 mill/uL (4.20-5.40); White Blood Cell (WBC) Count 10.67 10x3/uL (4.8-10.8)
[2025-01-10 07:34] LABS: Anion Gap 17 mmol/L (10-20); BUN (Urea Nitrogen) 30 mg/dL (9.8-20.1); Calc. Creatinine Clearance 31 mL/min (70-130); Calcium 8.5 mg/dL (7.8-10.44); Carbon Dioxide 25 mmol/L (23-31); Chloride 100 mmol/L (98-107); Glucose 142 mg/dL (83-110); Potassium 4.0 mmol/L (3.5-5.1); Sodium 138 mmol/L (136-145)
[2025-01-10 12:53] VITALS: BP 133/67; TEMP 98
== END 2025-01-10 13:38 | disposition home or self-care (01) | DRG 291 ==
LOC: ERS 06:42 → ERHOLD 09:47 → CCU 15:01 → IMCU/EMU 01-08 15:27 → T4-B 01-09 14:31
PROVIDERS: ADMIT Hospitalist; ATTEND Family Medicine
PROC: 5A09357 Assistance with Respiratory Ventilation, Less than 24 Consecutive Hours, Continuous Positive Airway Pressure (ICD-10-PCS; principal; 2025-01-07)
DX: I13.0 Hypertensive heart and chronic kidney disease with heart failure and stage 1 through stage 4 chronic kidney disease, or unspecified chronic kidney disease (principal); I50.31 Acute diastolic (congestive) heart failure; J96.01 Acute respiratory failure with hypoxia; I48.20 Chronic atrial fibrillation, unspecified; N17.9 Acute kidney failure, unspecified; I5A Non-ischemic myocardial injury (non-traumatic); E78.5 Hyperlipidemia, unspecified; Z86.73 Personal history of transient ischemic attack (TIA), and cerebral infarction without residual deficits; E11.65 Type 2 diabetes mellitus with hyperglycemia; I25.10 Atherosclerotic heart disease of native coronary artery without angina pectoris; Z87.891 Personal history of nicotine dependence; Z79.899 Other long term (current) drug therapy; Z79.01 Long term (current) use of anticoagulants; Z79.84 Long term (current) use of oral hypoglycemic drugs; I48.0 Paroxysmal atrial fibrillation; N18.30 Chronic kidney disease, stage 3 unspecified
CPT/HCPCS: 36415; 36416; 71045; 80048; 80053; 81001; 83540; 83550; 83735; 83880; 84443; 84484; 85025; 93005; 93306; 93798; 94660; 94760; 96365; 96366; 96375; J0360; J0696; J1815; J1940; J2060; J3475

== ENCOUNTER 2025-03-01 08:57 | Outpatient (CLI) | payer MEDICARE ==
[2025-03-01 12:22] LABS: Protein, Urine Random Quant 120.0 mg/dL (1-14)
== END 2025-03-01 08:58 | disposition home or self-care (01) ==
LOC: LABBT 08:57
PROVIDERS: ATTEND Internal Medicine Cardiovascular Disease
DX: Z01.818 Encounter for other preprocedural examination (principal); I48.0 Paroxysmal atrial fibrillation
CPT/HCPCS: 82306; 82570; 83970; 84156; 93005; 93010